=== PATIENT | female | born 1985 | race Caucasian/White ===

== ENCOUNTER 2020-10-01 06:05 | Emergency (ER) | payer OTHER ==
[~2020-10-01 06:05] MED LIST: BENTYL 20MG TAB20 MG PO; NORCO 5-325 TA1 EACH PO; ZOFRAN ODT 4 MG4 MG PO
[2020-10-01 07:13] LABS: HEMOGLOBIN 13.4 gm/dl (12.3-15.3); RED BLOOD COUNT 4.94 M/UL (4.00-5.10); WHITE BLOOD COUNT 5.9 K/UL (4.5-11.0)
[2020-10-01 07:31] LABS: BUN/CREATININE RATIO 13 (0-10)
[2020-10-01] MEDS ORDERED: IBUPROFEN800 MG PO (09:23)
[2020-10-01] MEDS ORDERED: ZOFRAN ODT 4 MG4 MG PO (09:23)
[2020-10-01] MEDS ORDERED: OMNICEF 300 MG300 MG PO (09:23)
== END 2020-10-01 10:00 | disposition home or self-care (01) ==
LOC: ER1 06:05
PROVIDERS: Emergency Medicine
DX: N39.0 Urinary tract infection, site not specified (principal)
CPT/HCPCS: 80053; 81001; 84703; 85025; 96374; 99283; J0696